=== PATIENT | female | born 1980 | race Caucasian/White ===

== ENCOUNTER 2021-11-05 10:58 | Emergency (ER) | payer MEDICAID, SELFPAY ==
[2021-11-05 11:16] VITALS: BP 115/67; PULSE 85; RESP 16; TEMP 36.7; O2SAT 98
--- NOTE | 2021-11-05 11:26 | XRR_ITS ---
PROCEDURE INFORMATION: Exam: XR Chest Exam date and time: 11/05/2021 11:39 AM Age: 40 years old Clinical indication: Cough and dyspnea; Additional info: Dyspnea/cough TECHNIQUE: Imaging protocol: Radiologic exam of the chest. Views: 1 view. COMPARISON: No relevant prior studies available. FINDINGS: Lungs: Unremarkable. No consolidation. Pleural spaces: Unremarkable. No pleural effusion. No pneumothorax. Heart/Mediastinum: Unremarkable. No cardiomegaly. Bones/joints: Unremarkable. XR/XR chest 1V portable [id number] IMPRESSION: No acute findings.
--- NOTE | 2021-11-05 11:53 | W.ED.URI ---
HPI - URI/Sore Throat General: Chief Complaint: Shortness of Breath/Dyspnea Stated Complaint: chest congestion/sob Time Seen by Provider: 11/05/21 11:26 Source: patient Mode of arrival: ambulatory Limitations: no limitations History of Present Illness: 40-year-old female presents emergency room with complaint of progressive cough after initially having sinus drainage. Low-grade fever. She is having posttussive vomiting. She denies any diarrhea or anosmia. She was previously vaccinated for COVID. MD elicited complaint: fever, cough, rhinorrhea and nasal congestion Onset (ago): day(s) Consistency: constant Severity: mild Description of mucous: clear Able to tolerate fluids by mouth: Yes Exacerbating factors: exertion Relieving factors: rest Associated symptoms: Reports congestion, cough, myalgias, nasal congestion, rhinorrhea, short of breath and sinus pain; Deny abdominal pain, change in voice, chills, chest pain, diarrhea, epistaxis, ear or mastoid pain, fever(s), headache(s), nausea, rash, stiffness, sore throat or vomiting Treatments prior to arrival: none Review of Systems Const: Denies: fever(s) or chills ENMT: Reports: nasal discharge, nasal congestion and sinus pain; Denies: ear or mastoid pain or epistaxis Card: Denies: chest pain Resp: Reports: non-productive cough; Denies: dyspnea or productive cough GI: Denies: abdominal pain, nausea, vomiting or diarrhea : Denies: flank pain, difficulty voiding, dysuria, urinary frequency or urinary urgency Skin/Breast: Denies: rash or pruritus Neuro: Denies: headache(s) PFS ED PFSH: Medical History (Updated 11/21/21 @ 06:23 by Niles Butler DO) No significant past medical history Surgical History (Updated 11/21/21 @ 06:23 by Niles Butler DO) No significant past surgical history Physical Exam Const: GENERAL APPEARANCE: cooperative and comfortable ORIENTATION/CONSCIOUSNESS: Yes awake, Yes oriented to person, Yes oriented to place and Yes oriented to time HENMT: COMMON NORMALS: normocephalic, atraumatic, hearing grossly normal bilaterally, external ears normal, EAC's normal, TM's normal bilaterally, moist oral mucous membranes and oropharynx normal HEAD & SCALP: normocephalic and atraumatic NOSE: Abnormal mucous membranes and turbinates present boggy and Nasal discharge present EXTERNAL EAR: Yes external ears normal EXTERNAL AUDITORY CANAL: EAC's normal TYMPANIC MEMBRANE: TM's normal bilaterally Resp: COMMON NORMALS: normal respiratory effort, No retractions, No use of accessory muscles and clear to auscultation bilaterally AUSCULTATION: clear to auscultation bilaterally Cardio: COMMON NORMALS: regular rate, regular rhythm and No murmurs present (Cardio) RATE: regular rate RHYTHM: regular rhythm GI: COMMON NORMALS: Soft to palpation and No hepatosplenomegaly present AUSCULTATION: Yes normoactive bowel sounds PALPATION: Yes Soft to palpation, No Tenderness to palpation present (GI), No Guarding due to palpation present (GI) and Yes No hepatosplenomegaly present Extremity: COMMON NORMALS: normal to inspection, capillary refill normal, no clubbing, cyanosis or edema, no calf tenderness and no pedal edema Neuro: SENSORIUM/ORIENTATION: Yes oriented to person, Yes oriented to place and Yes oriented to time Skin: COMMON NORMALS: no rashes or lesions noted GENERAL SKIN EXAM: no rashes or lesions noted Course Vital Signs: Vital signs: Vital Signs Temperature 98.1 F 11/05/21 11:16 Pulse Rate 92 11/05/21 12:27 Respiratory Rate 16 11/05/21 11:16 Blood Pressure 114/65 11/05/21 12:27 Pulse Oximetry 98 11/05/21 12:27 Oxygen Delivery Me thod 11/05/21 11:16 MDM - URI/Sore Throat Medical Decision Making Chest ray unremarkable. Mild findings screen for COVID discharge home we will contact her with results when available. Medical Records I reviewed the patient's medical records. Lab Data I reviewed the patient's lab results. : 11/05/21 12:00 11/05/21 12:00 Radiology Impressions Chest X-Ray 11/05/21 11:26 IMPRESSION: No acute findings. Laboratory Results WBC 8.5 10^3/uL (4.0-10.0) 11/05/21 12:00 RBC 4.42 10^6/uL (4.1-5.3) 11/05/21 12:00 Hgb 14.0 g/dL (11.5-15.3) 11/05/21 12:00 Hct 41.9 % (37.0-47.0) 11/05/21 12:00 MCV 94.8 fl (81-99) 11/05/21 12:00 MCH 31.7 pg (28.0-34.0) 11/05/21 12:00 MCHC 33.4 g/dL (30.0-36.0) 11/05/21 12:00 RDW 13.1 % (12.1-15.1) 11/05/21 12:00 Plt Count 214 10^3/cmm (130-400) 11/05/21 12:00 MPV 12.0 fL (7.4-10.4) H 11/05/21 12:00 Neut % (Auto) 59.1 % 11/05/21 12:00 Lymph % (Auto) 28.3 % 11/05/21 12:00 Harper % (Auto) 6.8 % 11/05/21 12:00 Eos % (Auto) 4.5 % 11/05/21 12:00 Baso % (Auto) 0.9 % 11/05/21 12:00 Neut # (Auto) 5.04 10^3/uL (1.8-7.7) 11/05/21 12:00 Lymph # (Auto) 2.4 10^3/uL (0.8-4.8) 11/05/21 12:00 Harper # (Auto) 0.6 10^3/uL (0.2-0.9) 11/05/21 12:00 Eos # (Auto) 0.4 10^3/uL (0.0-0.8) 11/05/21 12:00 Baso # (Auto) 0.1 10^3/uL (0.0-0.1) 11/05/21 12:00 Nucleated RBC % (auto) 0 % 11/05/21 12:00 Nucleated RBCs # 0.0 /100WBC 11/05/21 12:00 Sodium 142 mmol/L (136-145) 11/05/21 12:00 Potassium 3.7 mmol/L (3.5-5.1) 11/05/21 12:00 Chloride 109 mmol/L (98-107) H 11/05/21 12:00 Carbon Dioxide 23 mmol/L (22-29) 11/05/21 12:00 Anion Gap 13.7 (5-19) 11/05/21 12:00 BUN 22 mg/dL (6-20) H 11/05/21 12:00 Creatinine 0.5 mg/dL (0.5-0.9) 11/05/21 12:00 GFR Calculation 136.6 mL/min (90-130) H 11/05/21 12:00 Glucose 101 mg/dL (65-115) 11/05/21 12:00 Calculated Osmolality 297 mOsm/kg (285-295) H 11/05/21 12:00 Calcium 9.3 mg/dL (8.5-10.5) 11/05/21 12:00 Coronavirus 229E (PCR) Cancelled 11/05/21 12:00 SARS-CoV-2 (PCR) Cancelled 11/05/21 12:00 Discharge Plan Discharge Patient Disposition: Home Clinical Impression: Suspected COVID-19 virus infection Condition: Stable Prescriptions: New albuterol sulfate 90 mcg/actuation HFA aerosol inhaler 2 inh INHALATION Q4H PRN (Reason: shortness of breath or wheezing) Qty: 18 0RF Discharge Orders: Discharge ED (Routine); Ordered 11/05/21 Ordered By: Niles Butler Discharge Diet: Usual diet Discharge Activity: Increase activity as tolerated Patient Instructions: COVID-19 (Coronavirus Disease 2019) (ED), Opioid Safety Activity Restrictions/Additional Instructions: Suspected that you have COVID-19. We will contact you with results of the COVID swab when they become available. Recommend you maintain self quarantine until results are available can you see albuterol as needed for relief of cough. Coding Level of Care Code ED [facility] [employer] Fwd Exam Detailed
[2021-11-05 12:07] LABS: Basophils # 0.1 10^3/uL (0.0-0.1); Basophils % 0.9 %; Eosinophils # 0.4 10^3/uL (0.0-0.8); Eosinophils % 4.5 %; Hematocrit 41.9 % (37.0-47.0); Lymphocytes # 2.4 10^3/uL (0.8-4.8); Lymphocytes % 28.3 %; Mean Corpuscular HGB Conc 33.4 g/dL (30.0-36.0); Mean Corpuscular Hemoglobin 31.7 pg (28.0-34.0); Mean Corpuscular Volume 94.8 fl (81-99); Monocytes # 0.6 10^3/uL (0.2-0.9); Monocytes % 6.8 %; Neutrophils # 5.04 10^3/uL (1.8-7.7); Neutrophils % 59.1 %; Nucleated Red Blood Cells % 0 %; Platelet Count 214 10^3/cmm (130-400); Red Blood Count 4.42 10^6/uL (4.1-5.3); Red Cell Distribution Width 13.1 % (12.1-15.1); White Blood Count 8.5 10^3/uL (4.0-10.0)
[2021-11-05 12:27] VITALS: BP 114/65; PULSE 92; O2SAT 98
[2021-11-05 12:33] LABS: Blood Urea Nitrogen 22 mg/dL (6-20); Calcium 9.3 mg/dL (8.5-10.5); Carbon Dioxide 23 mmol/L (22-29); Chloride 109 mmol/L (98-107); Glomerular Filtration Rate 136.6 mL/min (90-130); Glucose 101 mg/dL (65-115); Osmolality Calculated 297 mOsm/kg (285-295); Sodium 142 mmol/L (136-145)
[2021-11-05 12:39] LABS: Anion Gap 13.7 (5-19); Potassium 3.7 mmol/L (3.5-5.1)
== END 2021-11-05 12:28 | disposition home or self-care (01) ==
PROVIDERS: Emergency Provider Family Medicine
DX: Z20.822 Contact with and (suspected) exposure to COVID-19 (principal)
CPT/HCPCS: 71045; 80048; 85025; 99284